=== PATIENT | male | born 1940 | race Caucasian/White ===

== ENCOUNTER → 2016-10-05 | Outpatient (CLI) | payer OTHER ==
--- NOTE | ~2016-10-05 | EKG ---
[address] [employer] [place] [address] ELECTROCARDIOGRAM REPORT Name: CHALO ORTIZ Room [facility]: [id number] Admission: 10/05/16 Attend Phys: Efrain Llanos MD Discharge: Date of : 42 Report #: [id number] THIS REPORT FOR: //name// [facility] Test Date: 2016-10-05 Test Time: 13:21:48 Pat Name: CHALO ORTIZ Department: Room: Gender: M Rn Managed Care: Umm : 1940 Requested By: Efrain Llanos Order Number: [id number] MD: Measurements Intervals [place] Rate: 87 P: 69 MA: 190 QRS: -21 QRSD: 100 T: 25 QT: 380 QTc: 457 Interpretive Statements Sinus rhythm Borderline left axis deviation Borderline low voltage, extremity leads Abnormal R-wave progression, late transition No previous ECG available for comparison [email or web address] By: 1321 1321 Epiphany Epiphany, /EPI
[2016-10-05 13:02] LABS: ABSOLUTE NEUTROPHILS 5.9 thou/uL (1.4-8.2); EOSINOPHILS 0.6 % (0.0-3.0); HEMOGLOBIN 16.7 gm/dL (14.0-18.0); LYMPHOCYTES 17.9 % (24.0-44.0); MCH 30.2 pg (26.0-34.0); MCHC 34.1 g/dL (28.0-37.0); MCV 88.6 fL (80.0-100.0); MONOCYTES 8.1 % (1.0-8.0); PLATELET COUNT 312 thou/uL (150-400); POLYS 72.4 % (36.0-66.0); RBC 5.53 mil/uL (4.50-6.00); RDW 13.2 % (10.5-14.5); WBC 8.1 thou/uL (4.0-11.0)
[2016-10-05 13:03] LABS: MANUAL DIFF NO
[2016-10-05 13:14] LABS: CALCIUM 9.5 mg/dL (8.5-10.1); CREATININE 1.2 mg/dL (0.7-1.3); POTASSIUM 4.1 mmol/L (3.5-5.1)
[2016-10-05 13:19] LABS: ALBUMIN 4.3 g/dL (3.4-5.0); DIRECT BILIRUBIN 0.2 mg/dL (<0.1-0.3); TOTAL PROTEIN 7.8 g/dL (6.4-8.2)
== END ==
LOC: RAD 12:26
PROVIDERS: Otolaryngology Plastic Surgery within the Head & Neck
DX: C43.4 Malignant melanoma of scalp and neck (principal)